=== PATIENT | female | born 1980 | race Caucasian/White ===

== ENCOUNTER 2021-11-21 23:41 | Emergency (ER) | payer BC ==
[~2021-11-21] VITALS: Ht 162.6 cm; Wt 59.0 kg
[2021-11-22] MEDS ORDERED: IV NORMAL SALINE 1000ML BAG 1,000 ML IV ONE
[2021-11-22] MEDS ORDERED: MORPHINE SULFATE 4 MG/ML INJ. IVP ONE
[2021-11-22] MEDS ORDERED: FAMOTIDINE 20 MG/2 ML VIAL IVP ONE
[2021-11-22] MEDS ORDERED: ONDANSETRON PF 4 MG/2 ML VIAL. IVP ONE
[2021-11-22 00:18] LABS: BASO # 0.1 x10^3/uL (0.0-0.2); BASO % 1 % (0-3); EOS # 0.4 x10^3/uL (0.0-0.7); EOS % 6 % (0-3); HEMATOCRIT 37.3 % (36.0-47.0); HEMOGLOBIN 12.3 g/dL (12.0-15.5); LYMPH # 3.2 x10^3/uL (1.0-4.8); LYMPH % 43 % (24-48); MEAN CORPUSCULAR HEMOGLOBIN 30 pg (25-35); MEAN CORPUSCULAR HGB CONC 33 g/dL (31-37); MEAN CORPUSCULAR VOLUME 91 fL (79-100); MONO # 0.5 x10^3/uL (0.0-1.1); MONO % 7 % (0-9); NEUT # 3.2 x10^3/uL (1.8-7.7); NEUT % 43 % (31-73); PLATELET COUNT 283 x10^3/uL (140-400); RED BLOOD COUNT 4.09 x10^6/uL (3.50-5.40); WHITE BLOOD COUNT 7.4 x10^3/uL (4.0-11.0)
[2021-11-22] MEDS ORDERED: HYDROmorphone 2 MG/ML INJ. ONE (00:19)
[2021-11-22 00:24] LABS: CALCIUM 8.8 mg/dL (8.5-10.1); CREATININE 0.9 mg/dL (0.6-1.0); GFR 69.7; POTASSIUM 3.5 mmol/L (3.5-5.1)
[2021-11-22 00:30] LABS: ALBUMIN 3.6 g/dL (3.4-5.0); TOTAL BILIRUBIN 0.2 mg/dL (0.2-1.0); TOTAL PROTEIN 7.2 g/dL (6.4-8.2)
[2021-11-22] MEDS ORDERED: IOHEXOL 300 MG/ML 100ML VIAL. IV ONE (00:30)
[2021-11-22] MEDS ORDERED: HYDROmorphone 2 MG/ML INJ. IVP ONE (00:30)
[2021-11-22] MEDS ORDERED: CONTRAST GIVEN. MC PRN (00:30)
--- NOTE | 2021-11-22 00:30 | PHYS DOC ---
Past Medical History Past Surgical History: Tubal ligation (KANWAL ROCHE NAIL EXPERT) General Adult EDM: Chief Complaint: ABDOMINAL PAIN HPI: HPI: Patient is a 41 year old female with no significant medical history presenting today complaining of 10 out of 10 sharp constant right lower quadrant abdominal pain with nausea and vomiting, symptoms began 2 hours prior to coming to the ED. Patient denies any diarrhea. Denies any fever. Denies anything specifically exacerbating or relieving her pain. She is actively vomiting on arrival to the ED. (MELCHORK[employer]WAL [place] [employer] EX[employer]ERT) Review of Systems: Review of Systems: Constitutional: Denies fever or chills. [] Eyes: Denies change in visual acuity. [] HENT: Denies nasal congestion or sore throat. [] Respiratory: Denies cough or shortness of breath. [] Cardiovascular: Denies chest pain or edema. [] GI: Reports right lower quadrant abdominal pain, nausea, vomiting, denies bloody stools or diarrhea. [] : Denies dysuria. [] Musculoskeletal: Denies back pain or joint pain. [] Integument: Denies rash. [] Neurologic: Denies headache, focal weakness or sensory changes. [] Psychiatric: Denies depression or anxiety. [] (KANWAL ROCHE NAIL EXPERT) Heart Score: C/O Chest Pain: N/A Risk Factors: Risk Factors: DM, Current or recent (<one month) smoker, HTN, HLP, family history of CAD, obesity. Risk Scores: Score 0 - 3: 2.5% MACE over next 6 weeks - Discharge Home Score 4 - 6: 20.3% MACE over next 6 weeks - Admit for Clinical Observation Score 7 - 10: 72.7% MACE over next 6 weeks - Early Invasive Strategies (KANWAL ROCHE NAIL EXPERT) Current Medications: Current Medications Medications (Trade) Dose Ordered Sig/Praveen Start Time Stop Time Status Last Admin Dose Admin Famotidine (Pepcid Vial) 20 mg 1X ONCE 11/22/21 00:00 11/22/21 00:03 DC 11/22/21 00:13 20 MG Hydromorphone HCl (Dilaudid) 2 mg STK-MED ONCE 11/22/21 00:19 11/22/21 00:20 DC Morphine Sulfate (Morphine Sulfate) 4 mg 1X ONCE 11/22/21 00:00 11/22/21 00:03 DC 11/22/21 00:00 4 MG Ondansetron HCl (Zofran) 4 mg 1X ONCE 11/22/21 00:00 11/22/21 00:03 DC 11/22/21 00:13 4 MG Sodium Chloride 1,000 ml @ 1,000 mls/hr 1X ONCE 11/22/21 00:00 11/22/21 00:59 11/22/21 00:13 1,000 MLS/HR (KANWAL ROCHE [employer]IL EXPERT) Allergies: Allergies: Allergies Coded Allergies Type Severity Reaction Last Updated Verified No Known Drug Allergies 11/21/21 No (KANWAL ROCHE [employer]IL EXPERT) Physical Exam: PE: Constitutional: Well developed, well nourished, no acute distress, non-toxic appearance. [] HENT: Normocephalic, atraumatic, bilateral external ears normal, oropharynx moist, no oral exudates, nose normal. [] Eyes: PERRLA, EOMI, conjunctiva normal, no discharge. [] Neck: Normal range of motion, no tenderness, supple, no stridor. [] Cardiovascular:Heart rate regular rhythm, no murmur [] Lungs & Thorax: Bilateral breath sounds clear to auscultation [] Abdomen: Patient is actively vomiting. Flat abdomen. Bowel sounds normal, soft, no right upper quadrant tenderness, mild tenderness to the right lower quadrant with negative psoas sign, negative obturator sign, negative Rovsing sign, no masses, no pulsatile masses. [] Skin: Warm, dry, no erythema, no rash. [] Back: No tenderness, no CVA tenderness. [] Extremities: No tenderness, no cyanosis, no clubbing, ROM intact, no edema. [] Neurologic: Alert and oriented X 3, normal motor function, normal sensory fun ction, no focal deficits noted. [] Psychologic: Affect normal, judgement normal, mood normal. [] (KANWAL ROCHE NAIL EXPERT) Current Patient Data: Labs: Laboratory Tests Test 11/22/21 00:08 White Blood Count 7.4 x10^3/uL (4.0-11.0) Red Blood Count 4.09 x10^6/uL (3.50-5.40) Hemoglobin 12.3 g/dL (12.0-15.5) Hematocrit 37.3 % (36.0-47.0) Mean Corpuscular Volume 91 fL (79-100) Mean Corpuscular Hemoglobin 30 pg (25-35) Mean Corpuscular Hemoglobin Concent 33 g/dL (31-37) Red Cell Distribution Width 13.0 % (11.5-14.5) Platelet Count 283 x10^3/uL (140-400) Neutrophils (%) (Auto) 43 % (31-73) Lymphocytes (%) (Auto) 43 % (24-48) Monocytes (%) (Auto) 7 % (0-9) Eosinophils (%) (Auto) 6 % (0-3) H Basophils (%) (Auto) 1 % (0-3) Neutrophils # (Auto) 3.2 x10^3/uL (1.8-7.7) Lymphocytes # (Auto) 3.2 x10^3/uL (1.0-4.8) Monocytes # (Auto) 0.5 x10^3/uL (0.0-1.1) Eosinophils # (Auto) 0.4 x10^3/uL (0.0-0.7) Basophils # (Auto) 0.1 x10^3/uL (0.0-0.2) Sodium Level 141 mmol/L (136-145) Potassium Level 3.5 mmol/L (3.5-5.1) Chloride Level 104 mmol/L (98-107) Carbon Dioxide Level 25 mmol/L (21-32) Anion Gap 12 (6-14) Blood Urea Nitrogen 14 mg/dL (7-20) Creatinine 0.9 mg/dL (0.6-1.0) Estimated GFR (Cockcroft-Gault) 69.7 BUN/Creatinine Ratio 16 (6-20) Glucose Level 123 mg/dL (70-99) H Calcium Level 8.8 mg/dL (8.5-10.1) Total Bilirubin Pending Aspartate Amino Transferase (AST) Pending Alanine Aminotransferase (ALT) Pending Alkaline Phosphatase Pending Total Protein Pending Albumin Pending Albumin/Globulin Ratio Pending Lipase Pending Ethyl Alcohol Level < 10 mg/dL (0-10) Laboratory Tests 11/22/21 00:08 Laboratory Tests 11/22/21 00:08 Vital Signs: Vital Signs Date Time Temp Pulse Resp B/P (MAP) Pulse Ox O2 Delivery O2 Flow Rate FiO2 11/22/21 00:22 23 11/22/21 00:00 100 Room Air 11/21/21 23:43 97.5 85 134/75 (94) 97.5 (KANWAL ROCHE NAIL EXPERT) EKG: EKG: [] (KANWAL ROCHE NAIL EXPERT) Radiology/Procedures: Radiology/Procedures: [] (KANWAL ROCHE NAIL EXPERT) Impression: COMPARISON: None. Exposure: One or more of the following individualized dose reduction techniques were utilized for this examination: 1. Automated exposure control 2. Adjustment of the mA and/or kV according to patient size 3. Use of iterative reconstruction technique. FINDINGS: LOWER CHEST: Unremarkable. ABDOMEN/PELVIS: Subcentimeter hypodensities in the right hepatic lobe, too small to characterize. Mild hepatomegaly measures up to 18.7 cm in length. Gallbladder, biliary ducts, spleen, pancreas and adrenal glands are unremarkable. Mild right hydroureteronephrosis with delayed renal enhancement and periureteric fat strand ing secondary to 3 mm obstructing calculus at the ureterovesical junction. Left kidney is unremarkable. No bowel obstruction. Normal appendix. Normal caliber abdominal aorta. Mesenteric arteries and portal veins are patent. No pneumoperitoneum or ascites. No lymphadenopathy in the abdomen or pelvis by size criteria. Decompressed urinary bladder which limits lesion. Unremarkable uterus. MUSCULOSKELETAL STRUCTURES: No acute osseous process. IMPRESSION: 1. A 3 mm obstructing calculus at the right ureterovesical junction resulting in mild right hydroureteronephrosis and delayed renal enhancement. 2. Subcentimeter hypodensities in the right hepatic lobe, too small to characterize. Recommend further evaluation with nonemergent MRI liver. (ALEXIS VALLEJO DO) Course & Med Decision Making: Course & Med Decision Making Pertinent Labs and Imaging studies reviewed. (See chart for details) This is a 41-year-old female patient presenting to the ED today complaining of 10 out of 10 right lower quadrant abdominal pain with nausea and vomiting, symptoms began 2 hours prior to coming to the ED. CBC is completely normal, CMP is negative [address] Vallejo pending CT abdomen and pelvis and UA (KANWAL ROCHE NAIL EXPERT) Course & Med Decision Making Assumed care from MLP @ 0100hrs. Disposition pending CT imaging. 3mm stone right UVJ- Treatment with toradol and flomax. Will DC with flomax and norco. Will refer to Urology. (ALEXIS VALLEJO DO) Wander Disclaimer: Wander Disclaimer: This electronic medical record was generated, in whole or in part, using a voice recognition dictation system. (KANWAL ROCHE APRN) Departure Departure Impression: Primary Impression: Kidney stone Disposition: HOME / SELF CARE / HOMELESS Condition: STABLE Referrals: NON,STAFF (PCP) SUSSY NOVA MD Patient Instructions: Kidney Stones Scripts Tamsulosin Hcl (FLOMAX) 0.4 Mg Cap.er.24h 0.4 MG PO DAILY, #14 TAB Prov: ALEXIS VALLEJO DO 11/22/21 Hydrocodone/Acetaminophen (Hydrocodone-Acetamin 5-325 mg) 1 Each Tablet 1 EACH PO Q4-6HRS, #14 TAB Prov: ALEXIS VALLEJO DO 11/22/21 KANWAL ROCHE APRN Nov 22, 2021 00:30 ALEXIS VALLEJO DO Nov 22, 2021 01:52
[2021-11-22 00:47] LABS: BILIRUBIN,URINE NEGATIVE (NEG); CLARITY,URINE CLEAR; COLOR,URINE YELLOW
[2021-11-22 00:48] LABS: NITRITE,URINE NEGATIVE (NEG); PH,URINE 6.5 (<5.0-8.0); PROTEIN,URINE NEGATIVE (NEG-TRACE); UROBILINOGEN,URINE 0.2 mg/dL (0.2 mg/dL)
[2021-11-22 00:52] LABS: BACTERIA,URINE MODERATE /HPF (0-FEW)
[2021-11-22 00:56] LABS: AMPHETAMINE/METHAMPHETAMINE NEG (NEG); BARBITURATES NEG (NEG); BENZODIAZEPINES NEG (NEG); CANNABINOIDS NEG (NEG); COCAINE NEG (NEG); METHADONE NEG (NEG); OPIATES POS (NEG); PHENCYCLIDINE NEG (NEG)
--- NOTE | 2021-11-22 01:38 | RAD ---
EXAMINATION: CT abdomen and pelvis with IV contrast. INDICATION:41 years, Female, right lower quadrant abdominal pain. TECHNIQUE: Axial CT images of the abdomen and pelvis were obtained. Coronal and sagittal reformatted performed. COMPARISON: None. Exposure: One or more of the following individualized dose reduction techniques were utilized for thi s examination: 1. Automated exposure control 2. Adjustment of the mA and/or kV according to patient size 3. Use of iterative reconstruction technique. FINDINGS: LOWER CHEST: Unremarkable. ABDOMEN/PELVIS: Subcentimeter hypodensities in the right hepatic lobe, too small to characterize. Mild hepatomegaly m easures up to 18.7 cm in length. Gallbladder, biliary ducts, spleen, pancreas and adrenal glands are unremarkable. Mild right hydroureteronephrosis with delayed renal enhancement and periureteric fat st randing secondary to 3 mm obstructing calculus at the ureterovesical junction. Left kidney is unremar kable. No bowel obstruction. Normal appendix. Normal caliber abdominal aorta. Mesenteric arteries and portal veins are patent. No pneumoperitoneum or ascites. No lymphadenopathy in the abdomen or pelvis by siz e criteria. Decompressed urinary bladder which limits lesion. Unremarkable uterus. MUSCULOSKELETAL STRUCTURES: No acute osseous process. IMPRESSION: 1. A 3 mm obstructing calculus at the right ureterovesical junction resulting in mild right hydroure teronephrosis and delayed renal enhancement. 2. Subcentimeter hypodensities in the right hepatic lobe, too small to characterize. Recommend furth er evaluation with nonemergent MRI liver. Electronically signed by: Marni Vera MD (11/22/2021 1:35 AM) [facility]
[2021-11-22] MEDS ORDERED: KETOROLAC 30 MG/ML VIAL. IVP ONE (01:45)
[2021-11-22] MEDS ORDERED: TAMSULOSIN 0.4 MG CAP.ER.24H. PO ONE (01:45)
[2021-11-22] MEDS ORDERED: TAMS0.4C97 PO (01:52)
[2021-11-22] MEDS ORDERED: HYDR-2759 PO (01:52)
[2021-11-22 02:00] VITALS: BP 150/97
[2021-11-22] MEDS ORDERED: OXYC1TAB15 PO (02:00)
== END 2021-11-22 02:15 | disposition home or self-care (01) ==
LOC: ER 23:41
DX: R10.31 Right lower quadrant pain (principal); R11.2 Nausea with vomiting, unspecified
CPT/HCPCS: 36415; 74177; 80053; 80307; 81001; 81025; 83690; 85025; 87086; 96361; 96374; 96375; 99285; G0480; J1170; J1885; J2270; J2405; J3490; J7030; Q9967